=== PATIENT | male | born 1995 | race Caucasian/White ===

== ENCOUNTER 2024-11-11 14:24 | Emergency (ER) | payer MEDICAID ==
[~2024-11-11] VITALS: Ht 182.9 cm; Wt 101.2 kg
[2024-11-11] MEDS ORDERED: [UNRECOGNIZED DRUG - CODE] PO (16:40)
[2024-11-11] MEDS: HYDROcodone/acetaminophen 5mg/325mg tablet PO ONE (16:54)
[2024-11-11] MEDS: ondansetron 4mg rapidly disintigrating tab PO ONE (16:54)
[2024-11-11] MEDS: ketorolac trometh 30MG/ML vial 30 MG/ML VIAL IM ONE (16:56)
[2024-11-11] MEDS: clindamycin 150mg capsule PO ONE (17:08)
[2024-11-11 17:35] VITALS: BP 132/81; PULSE 79; RESP 17; TEMP 98; O2SAT 99
== END 2024-11-11 17:05 | disposition home or self-care (01) ==
LOC: ER 14:26
DX: K02.9 Dental caries, unspecified (principal); K04.7 Periapical abscess without sinus; K08.89 Other specified disorders of teeth and supporting structures; Z88.0 Allergy status to penicillin; Z79.899 Other long term (current) drug therapy
CPT/HCPCS: 96372; 99284; J1885

== ENCOUNTER 2025-01-02 16:21 | Emergency (ER) | payer MEDICAID ==
[~2025-01-02] VITALS: Ht 182.9 cm; Wt 102.2 kg
[2025-01-02 16:26] VITALS: BP 143/89; PULSE 62; O2SAT 99
[2025-01-02] MEDS: BUPIVAcaine 0.5% W/EPI /PF 10ml vial IJ STA (16:38)
[2025-01-02] MEDS ORDERED: IBUP-1986 PO (16:54)
[2025-01-02] MEDS ORDERED: CLIN150C2 PO (16:54)
[2025-01-02 17:15] VITALS: RESP 16
[2025-01-02] MEDS: clindamycin 150mg capsule PO ONE (17:15)
[2025-01-02] MEDS: ketorolac trometh 15mg/ml vial 15 MG/ML ML IM ONE (17:15)
[2025-01-02 18:08] VITALS: TEMP 98.3
== END 2025-01-02 18:09 | disposition home or self-care (01) ==
LOC: ER 16:21
DX: K08.89 Other specified disorders of teeth and supporting structures (principal); Z88.0 Allergy status to penicillin
CPT/HCPCS: 96372; 99283; J1885

== ENCOUNTER 2025-01-19 13:50 | Emergency (ER) | payer MEDICAID ==
[~2025-01-19] VITALS: Ht 182.9 cm; Wt 100.5 kg
[~2025-01-19 13:50] MED LIST: IBUP-1986 PO
[2025-01-19 13:57] VITALS: BP 129/88; PULSE 74; TEMP 97.4; O2SAT 98
[2025-01-19 15:22] VITALS: RESP 19
[2025-01-19] MEDS: ketorolac trometh 30MG/ML vial 30 MG/ML VIAL IM ONE (15:22)
[2025-01-19] MEDS ORDERED: IBUP-1984 PO (15:30)
--- NOTE | 2025-01-19 15:31 | Physician Documentation ---
History of Present Illness General Chief Complaint: Tooth Problem Stated Complaint: TOOTH PAIN Time Seen by MD: 14:24 History of Present Illness Initial Comments 30-year-old male who presents to the emergency department for evaluation of dentalgia. Reports that his upper and left lower molars are with dental caries and he is awaiting dental follow up for consideration of extraction. Seen here earlier Rambo received lidocaine injection for which she reports provided him with short-term relief. He has been taking ibuprofen and Tylenol PRN. No facial swelling or suspected cellulitis or obvious abscess. Medication Reconciliation Allergies: Coded Allergies: amoxicillin (Verified Allergy, Unknown, 11/11/24) clavulanic acid (Verified Allergy, Unknown, 11/11/24) Scheduled Ibuprofen (Ibuprofen), 1 TAB PO Q8H Ibuprofen* (Motrin*), 800 MG PO Q8H Review of Systems All Other Systems at this time: Reviewed and Negative Constitutional: Denies: fever, chills ENT Dentalgia Physical Exam Physical Exam Vital Signs: Temperature: 97.4, Source: Oral, Heart Rate: 74, Respiratory Rate: 19, BP: 129/88, Pulse Oximetry: 98, Weight: 100.500 General Appearance: alert, WD/WN, moderate distress Head: normal inspection Face: normal inspection Pupils/EOM/Fundus: PERRLA Oropharynx: other (Dental caries, dental fractures, mild gingival erythema no periapical abscess) Neck: non-tender Respiratory: no respiratory distress Extremities: normal range of motion Neurologic: oriented x4 Motor / Sensory: no motor deficit Psychiatric: normal mood/affect Skin: normal color; No: rash Progress Results/Orders Results/Orders Completed Orders - JENISE CROWDER Lidocaine 1% 30ml Vial (Xylocaine 1% Via (01/19/25 15:17) Medications Received in ER Medications (Trade) Dose Ordered Sig/Tyrese Route PRN Reason Start Time Stop Time Status Last Admin Dose Admin (Toradol inj. 30mg/ml) 30 mg ONCE ONCE IM 01/19/25 14:05 01/19/25 14:08 DC 01/19/25 15:22 30 MG Vital Signs 01/19/25 01/19/25 13:57 15:22 Temp 97.4 Pulse 74 Resp 18 19 B/P (MAP) 129/88 Pulse Ox 98 Medical Decision Making Differential Diagnosis Examination consistent with acute on chronic global dental decay without obvious periapical abscess, Suman's angina and/or facial cellulitis. Provided gum injection with 1 cc of 1% lidocaine with a number 27 gauge needle. Patient had immediate relief of pain. Additionally treated with single Toradol injection at 30 mg. Discharged with aftercare instructions follow up with dentist for consideration of extraction. 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 Departure Disposition: HOME / SELF CARE / HOMELESS Impression: Primary Impression: Dental caries Condition: Improved Discharge Instructions: Dental Caries, Adult Additional Instructions: Please continue with your antibiotic therapy. Please take ibuprofen as directed and apply lidocaine so gauze is to tooth for pain management. Please follow up with a dentist for consideration of extraction. Referrals: NO PRIMARY CARE PROVIDER (PCP) Prescriptions Ibuprofen* (Motrin*) 400 Mg Tablet 800 MG PO Q8H for 10 Days, #30 TAB Prov: JENISE CROWDER 01/19/25 Education Educated: Patient Educated regarding: diagnosis, treatment Signature Scribe Signature: . Attestation: . JENISE CROWDER January 19, 2025 15:31
[2025-01-19] MEDS: LIDOcaine 1% 30ml preserv. free vial SQ STA (15:35)
[2025-01-19] MEDS: LIDOcaine 2% Viscous 15ml cup MM PRN (15:35)
== END 2025-01-19 15:54 | disposition home or self-care (01) ==
LOC: ER 13:51
DX: K02.9 Dental caries, unspecified (principal); Z88.0 Allergy status to penicillin
CPT/HCPCS: 96372; 99283; J1885